=== PATIENT | male | born 1990 | race Caucasian/White ===

== ENCOUNTER 2016-12-20 08:49 | Emergency (ER) | payer BC, SELFPAY ==
[~2016-12-20] VITALS: Ht 177.8 cm; Wt 158.7 kg
[2016-12-20] MEDS ORDERED: PRINIVIL10 MG PO (11:25)
[2017-04-11] MEDS ORDERED: PRINIVIL20 MG PO (02:24)
== END 2016-12-20 10:50 | disposition short-term general hospital (02) ==
LOC: ER 08:49
DX: R10.9 Unspecified abdominal pain (principal); I10 Essential (primary) hypertension; Z87.442 Personal history of urinary calculi; Z79.899 Other long term (current) drug therapy
CPT/HCPCS: J1885